=== PATIENT | male | born 1970 | race Caucasian/White ===

== ENCOUNTER → 2020-06-12 | Outpatient (CLI) | payer OTHER | END | disposition home or self-care (01) | LOC: RAD 13:50 | PROVIDERS: ATTEND Internal Medicine Interventional Cardiology | DX: M51.25 Other intervertebral disc displacement, thoracolumbar region (principal); M50.223 Other cervical disc displacement at C6-C7 level; M48.02 Spinal stenosis, cervical region; M48.061 Spinal stenosis, lumbar region without neurogenic claudication | CPT/HCPCS: 72146; 72148 ==

== ENCOUNTER → 2020-07-02 | Outpatient (CLI) | payer OTHER ==
[2020-07-02 07:38] LABS: MEAN CORPUSCULAR HEMOGLOBIN 31.2 pg (27.5-34.5); MEAN CORPUSCULAR HGB CONC 33.3 g/dL (33.2-36.2); MEAN CORPUSCULAR VOLUME 93.8 fL (81-97); MEAN PLATELET VOLUME 10.5 fL (7.4-10.4); PLATELET COUNT 243 x10^3/uL (130-400)
[2020-07-02 07:45] LABS: ALBUMIN 3.9 g/dL (3.4-5.0); ANION GAP 5 mmol/L (5-15); CALCIUM 8.9 mg/dL (8.5-10.1); CHLORIDE 104 mmol/L (98-107)
[2020-07-02 07:49] LABS: ALANINE AMINOTRANSFERASE 44 U/L (12-78); ALKALINE PHOSPHATASE 48 U/L (45-117); BILIRUBIN,TOTAL 0.4 mg/dL (0.2-1.0); CHOL/HDL RATIO 8.7; CHOLESTEROL, TOTAL 201 mg/dL (140-239); CREATININE 1.04 mg/dL (0.7-1.3); HDL CHOL % 11 % (26-37); HDL CHOLESTEROL (DIRECT) 23 mg/dL (40-60); TRIGLYCERIDES 691 mg/dL (50-200)
== END | disposition home or self-care (01) ==
LOC: LAB 07:18
PROVIDERS: ATTEND Family Medicine Adult Medicine
DX: E11.9 Type 2 diabetes mellitus without complications (principal); I10 Essential (primary) hypertension
CPT/HCPCS: 36415; 80053; 80061; 83036; 85027

== ENCOUNTER → 2020-10-09 | Outpatient (CLI) | payer BC, OTHER ==
[~2020-10-09] MED LIST: GABA600T7 PO; GEMF600T8 PO; GLIP5TAB10 PO; HYDR12.517 PO; LOSA50TA14 PO; METF10007 PO
[2020-10-09 14:37] LABS: INTERNATIONAL NORMALIZED RATIO 1.01 (0.93-1.1); PROTHROMBIN TIME 10.7 Seconds (9.6-11.5)
[2020-10-09 14:38] LABS: BASOPHILS % (AUTO) 0 % (0-1); EOSINOPHILS % (AUTO) 3 % (1-7); LYMPHOCYTES % (AUTO) 29 % (22-44); MEAN CORPUSCULAR HEMOGLOBIN 31.6 pg (27.5-34.5); MEAN CORPUSCULAR HGB CONC 34.2 g/dL (33.2-36.2); MEAN PLATELET VOLUME 10.5 fL (7.4-10.4); MONOCYTES % (AUTO) 6 % (2-9); NEUTROPHILS % (AUTO) 62 % (42-75); PLATELET COUNT 243 x10^3/uL (130-400); RED BLOOD COUNT 4.73 x10^6/uL (4.38-5.82)
[2020-10-09 14:40] LABS: ALANINE AMINOTRANSFERASE 45 U/L (12-78); ALBUMIN 4.1 g/dL (3.4-5.0); ANION GAP 7 mmol/L (5-15); CALCIUM 9.1 mg/dL (8.5-10.1); CHLORIDE 100 mmol/L (98-107); CREATININE 1.16 mg/dL (0.7-1.3)
[2020-10-09 14:43] LABS: ALKALINE PHOSPHATASE 49 U/L (45-117); BILIRUBIN,TOTAL 0.5 mg/dL (0.2-1.0); TOTAL PROTEIN 8.2 g/dL (6.4-8.2)
[2020-10-09 14:44] LABS: MD NO
== END | disposition home or self-care (01) ==
LOC: STAR 13:19
PROVIDERS: ATTEND Neurological Surgery
DX: Z01.818 Encounter for other preprocedural examination (principal); M51.26 Other intervertebral disc displacement, lumbar region; M51.37 Other intervertebral disc degeneration, lumbosacral region; M41.86 Other forms of scoliosis, lumbar region; Z20.828 Contact with and (suspected) exposure to other viral communicable diseases
CPT/HCPCS: 71046; 72110; 80053; 85025; 85610; 85730; 87635; 93005

== ENCOUNTER 2020-10-14 05:24 | Day surgery (SDC) | payer BC, OTHER ==
[~2020-10-14] VITALS: Ht 182.9 cm; Wt 95.9 kg
[2020-10-14 06:18] VITALS: BP 155/73
[2020-10-14] MEDS ORDERED: BACITRACIN 50,000 UNIT ONE (06:22)
[2020-10-14] MEDS ORDERED: BUPIVACAINE/PF 0.25% ONE (06:22)
[2020-10-14] MEDS ORDERED: EPINEPHRINE 1 MG/ML, 1ML ONE (06:22)
[2020-10-14] MEDS ORDERED: VANCOMYCIN 1,000 MG ONE (06:22)
[2020-10-14] MEDS ORDERED: GABA800T5 PO (06:26)
[2020-10-14] MEDS ORDERED: LOSA100T14 PO (06:26)
[2020-10-14] MEDS ORDERED: CHLORHEXIDINE 15 ML UDC MM ONE (06:30)
[2020-10-14] MEDS ORDERED: LACTATED RINGERS 1,000 ML IV SCH (06:30)
[2020-10-14] MEDS ORDERED: ACETAMINOPHEN 500 MG TABLET PO STA (06:38)
[2020-10-14] MEDS ORDERED: OXYcodone IR 5MG TABLET PO STA (06:38)
[2020-10-14] MEDS ORDERED: MIDAZOLAM 1 MG/ML, 2ML ONE (06:42)
[2020-10-14] MEDS ORDERED: FENTANYL PF 250 MCG/5ML ONE (06:42)
[2020-10-14] MEDS ORDERED: MAGNESIUM SULFATE 1 GM/2 ML ONE (06:50)
[2020-10-14] MEDS ORDERED: KETAMINE 10 MG/ML, 20ML ONE (06:51)
[2020-10-14] MEDS ORDERED: GLYB5TAB3 PO (06:58)
[2020-10-14] MEDS ORDERED: HYDR25TA6 PO (06:58)
[2020-10-14] MEDS ORDERED: METO-93 PO (06:59)
[2020-10-14] MEDS ORDERED: LABETALOL 5MG/ML, 20ML IV PRN (07:00)
[2020-10-14] MEDS ORDERED: hydrALAzine 20 MG/ML, 1ML IV PRN (07:00)
[2020-10-14] MEDS ORDERED: MEPERIDINE/PF 25MG/0.5ML IVPush PRN (07:00)
[2020-10-14] MEDS ORDERED: METHOCARBAMOL 1,000 MG in DEXTROSE 5% 100 ML IV PRN (07:00)
[2020-10-14] MEDS ORDERED: FENTANYL PF 100 MCG/2ML IV PRN (07:00)
[2020-10-14] MEDS ORDERED: PROMETHAZINE 25 MG/ML, 1ML IVPush PRN (07:00)
[2020-10-14] MEDS ORDERED: TIZA-106 PO (07:00)
[2020-10-14] MEDS ORDERED: DIPHENHYDRAMINE 50 MG/ML, 1ML IVPush PRN (07:00)
[2020-10-14] MEDS ORDERED: HYDROmorphone 1 MG/ML, 1ML INJ IVPush PRN (07:00)
[2020-10-14] MEDS ORDERED: OXYcodone 5 MG/5 ML ORAL.SOL UDC PO PRN (07:00)
[2020-10-14] MEDS ORDERED: DIAZEPAM 5 MG/ML, 2ML IVPush PRN (07:00)
[2020-10-14] MEDS ORDERED: ONDANSETRON 2MG/ML, 2ML IVPush PRN (07:00)
[2020-10-14] MEDS ORDERED: GABAPENTIN 300 MG CAPSULE PO PRN (07:00)
[2020-10-14] MEDS ORDERED: ROCURONIUM 10 MG/ML,10ML ONE (07:17)
[2020-10-14] MEDS ORDERED: NEOSTIGMINE 1 MG/ML, 10ML ONE (07:17)
[2020-10-14] MEDS ORDERED: EPHEDRINE 50 MG/ML, 1ML ONE (07:17)
[2020-10-14] MEDS ORDERED: CEFAZOLIN 1,000 MG ONE (07:17)
[2020-10-14] MEDS ORDERED: GLYCOPYRROLATE 0.2MG/1ML, 5ML ONE (07:17)
[2020-10-14] MEDS ORDERED: DEXAMETHASONE 4 MG/ML, 5ML ONE (07:17)
[2020-10-14] MEDS ORDERED: PROPOFOL 10 MG/ML, 20ML ONE (07:17)
[2020-10-14] MEDS ORDERED: FENTANYL PF 100 MCG/2ML ONE ×2 (07:54→07:58)
[2020-10-14] MEDS ORDERED: methylPREDNISolone SOD SUCC 125 MG/2 ML ONE (07:58)
[2020-10-14] MEDS ORDERED: FENTANYL PF 100 MCG/2ML EPIDPUSH ONE (08:13)
[2020-10-14] MEDS ORDERED: OXYC-302 PO (08:25)
[2020-10-14] MEDS ORDERED: INSULIN SINGLE DOSE, ER ONE (08:43)
[2020-10-14] MEDS ORDERED: INSULIN REGULAR 100 UNITS/ML, 3ML VIAL SQ-INSULIN ONE (11:00)
== END 2020-10-14 10:30 | disposition home or self-care (01) ==
LOC: OUT 05:24
PROVIDERS: ATTEND Neurological Surgery
DX: M51.17 Intervertebral disc disorders with radiculopathy, lumbosacral region (principal); M51.16 Intervertebral disc disorders with radiculopathy, lumbar region; M48.061 Spinal stenosis, lumbar region without neurogenic claudication; M48.07 Spinal stenosis, lumbosacral region; I10 Essential (primary) hypertension; E11.65 Type 2 diabetes mellitus with hyperglycemia; E78.5 Hyperlipidemia, unspecified; Z79.84 Long term (current) use of oral hypoglycemic drugs; Z79.899 Other long term (current) drug therapy; Z88.0 Allergy status to penicillin; Z90.49 Acquired absence of other specified parts of digestive tract; Z98.1 Arthrodesis status; Z98.890 Other specified postprocedural states; Z83.3 Family history of diabetes mellitus; Z82.49 Family history of ischemic heart disease and other diseases of the circulatory system
CPT/HCPCS: 63030; 72100; 82962; C1751; J0171; J0690; J1100; J2250; J2704; J2710; J2930; J3010; J3475; J7120; J3370; J1815

== ENCOUNTER → 2020-12-08 | Outpatient (CLI) | payer OTHER ==
[~2020-12-08] MED LIST changes: +GABA800T5 PO; +GEMF-31 PO; -GEMF600T8 PO; +GLYB5TAB3 PO; +HYDR25TA6 PO; +LOSA100T14 PO; +METO-93 PO; +OXYC1TAB14 PO; +TIZA-106 PO
== END | disposition home or self-care (01) ==
LOC: CFH 08:49
PROVIDERS: ATTEND Registered Nurse Registered Nurse First Assistant
DX: M51.37 Other intervertebral disc degeneration, lumbosacral region (principal); M48.07 Spinal stenosis, lumbosacral region; M25.78 Osteophyte, vertebrae; Z98.1 Arthrodesis status
CPT/HCPCS: 72128; 72131

== ENCOUNTER → 2020-12-17 | Outpatient (CLI) | payer OTHER ==
[2020-12-17 17:35] LABS: HCT (SEDRATE) 43.1 % (39.2-51.8)
[2020-12-18 14:32] LABS: ANA SCREEN NEGATIVE (Negative)
== END | disposition home or self-care (01) ==
LOC: LAB 17:07
PROVIDERS: ATTEND Neurological Surgery
DX: M45.4 Ankylosing spondylitis of thoracic region (principal)
CPT/HCPCS: 36415; 81374; 85651; 86038; 86140; 86430

== ENCOUNTER → 2020-12-22 | Outpatient (CLI) | payer OTHER | END | disposition home or self-care (01) | LOC: RAD 15:30 → EDSTATUS 16:15 | PROVIDERS: ATTEND Neurological Surgery | DX: M51.34 Other intervertebral disc degeneration, thoracic region (principal) | CPT/HCPCS: 72146 ==